=== PATIENT | male | born 1995 | race Caucasian/White ===

== ENCOUNTER 2017-01-03 14:56 | Emergency (ER) | payer OTHER ==
[~2017-01-03] VITALS: Ht 180.3 cm; Wt 83.7 kg
[2017-01-03 15:01] VITALS: Ht 180.3 cm; Wt 83.7 kg
[2017-01-03 15:08] VITALS: O2SAT 99
[2017-01-03] MEDS ORDERED: OPTIRAY 320 IV PRN (15:15)
[2017-01-03 15:32] LABS: BASO % 0.1 %; BASO ABS # 0.01 K/uL (0-0.2); COMPLETE YES; EOS % 0.1 %; HEMATOCRIT 44.8 % (42-52); IG% 0.1 %; LYMPH % 22.3 %; LYMPH ABS # 1.73 K/uL (1.2-3.4); MEAN CELL VOLUME 85.3 fL (80-100); MEAN CORPUSCULAR HEMOGLOBIN 29.3 pg (25-34); MEAN CORPUSCULAR HGB CONC 34.4 g/dl (32-36); MEAN PLATELET VOLUME 10.1 fL (7.4-10.4); MONO % 10.6 %; NEUT % 66.8 %; PLATELET COUNT 163 K/uL (130-400); RED BLOOD COUNT 5.25 M/uL (4.7-6.1); WHITE BLOOD COUNT 7.77 K/uL (4.8-10.8)
[2017-01-03 15:41] LABS: PARTIAL THROMBOPLASTIN RATIO 1.1; PROTHROMBIN TIME (PATIENT) 10.2 SECONDS (9.0-12.0)
[2017-01-03 15:54] LABS: ALT/SGPT 23 U/L (12-78); BLOOD UREA NITROGEN 12 mg/dl (7-18); BUN/CREATININE RATIO 12.4 (10-20); CALCIUM 9.7 mg/dl (8.5-10.1); CARBON DIOXIDE 28 mmol/L (21-32); CHLORIDE 103 mmol/L (98-107); GLUCOSE 88 mg/dl (70-99); POTASSIUM 3.9 mmol/L (3.5-5.1); SODIUM 139 mmol/L (136-145)
[2017-01-03 15:59] LABS: ALKALINE PHOSPHATASE 63 U/L (45-117); AST/SGOT 26 U/L (15-37)
--- NOTE | 2017-01-03 16:23 | DIAGNOSTIC IMAGING REPORT ---
(CHEST FOR PE) ANGIO WITH CLINICAL HISTORY: 21 years-old Male presenting with chest pain, elevated d-dimer greater than 2200. TECHNIQUE: Multidetector CT angiography of the chest was performed after administration of intravenous contrast. 3-D volumetric and maximum intensity projection (MIP) images were subsequently reconstructed for review. IV contrast: 93 mL of Optiray 320. A dose lowering technique was used consistent with the principles of ALARA (as low as reasonably achievable). COMPARISON: None. CT DOSE (mGy.cm): The estimated cumulative dose is 311.31 mGy.cm. FINDINGS: Chin Strap Cutter topogram: Unremarkable. Pulmonary vasculature: The study is suboptimal for assessment of the pulmonary vascular tree given the presence of respiratory artifact at the lung bases. Questionable defects in the subsegmental pulmonary arteries of the bilateral lower lobes. No central pulmonary embolus. Main pulmonary artery not enlarged. No flattening of the interventricular septum. No intracardiac filling defect. Remaining chest: On soft tissue windows, normal thyroid and thoracic inlet. Small subcentimeter hilar lymph nodes suggested, left greater than right, likely reactive. Normal aorta. Normal heart size. Small left pleural effusion. No pericardial effusion. Upper abdomen normal. On lung windows, minimal groundglass opacity in the lingula as well as dependently in the left lower lobe. This is notably asymmetric to the right. Airways patent. On bone windows, normal osseous structures. IMPRESSION: 1. Equivocal subsegmental pulmonary artery filling defects. This may be artifactual related to respiratory motion at the lung bases. If there is continuing clinical concern for pulmonary embolus, lower extremity Doppler ultrasound to be obtained. 2. Limited groundglass opacity in the lingula and left lower lobe. An infectious etiology cannot be excluded. Associated small left pleural effusion. Electronically signed by: Froylan Jacques M.D. 01/03/2017 4:22 PM Dictated Date/Time: 01/03/2017 4:12 PM
--- NOTE | 2017-01-03 18:52 | DIAGNOSTIC IMAGING REPORT ---
ULTRASOUND VENOUS DOPPLER LWR EXT BILA CLINICAL HISTORY: Possible subsemental PEs, Elevated d-dimer COMPARISON STUDY: No previous studies for comparison. FINDINGS: Real-time and color flow Doppler imaging were performed. Flow was seen within the femoral, popliteal and calf veins with no intraluminal thrombus demonstrated. The saphenous vein is patent. IMPRESSION: No evidence of lower extremity DVT. Electronically signed by: Sahil Edge M.D. 01/03/2017 6:51 PM Dictated Date/Time: 01/03/2017 6:50 PM
[2017-01-03 19:04] VITALS: TEMP 37.5
[2017-01-03] MEDS ORDERED: OXYCODONE HCL IR 5 MG TAB (IMMEDIATE RELEASE) PO STA (20:39)
[2017-01-03] MEDS ORDERED: ONDANSETRON INJ 2 MG/ML 2 ML VIAL IV STA (21:23)
[2017-01-03] MEDS: MoRPHine SULFATE 4 MG/ML 1 ML CARP\\VIAL IV STA ×2 (21:23→21:33)
[2017-01-03] MEDS ORDERED: OXYCODONE IR HOME PACK PO ONE (21:30)
[2017-01-03 21:58] VITALS: BP 123/78; PULSE 82; O2SAT 96
--- NOTE | 2017-01-03 22:05 | EMERGENCY ROOM VISIT NOTE ---
History First contact with patient: 15:03 Chief Complaint: CARDIAC ASSESSMENT Stated Complaint: CHEST PAIN Nursing Triage Summary: patient referred from [facility], elevated ddmr 2200, patient c/o chest pain since last evening 1999, described as tightness, worsened with inspiration and laying down. History of Present Illness The patient is a 21 year old male who presents to the Emergency Room with complaints of chest pain for the past 19 hours. The patient reports that at approximately 10 PM last evening, the patient developed left-sided chest pain that he described as a tightness, sharp sensation and worsened with inspiration and laying on his back. The patient reports that he coughed up a small blood clot this morning around 9:30 AM. He went to [facility] where a chest x-ray was performed and was normal. His d-dimer was 2200. He was sent here for further evaluation. The patient denies any pain radiating into the neck or abdomen. He denies any significant shortness of breath. The patient denies any personal or family history of cardiopulmonary disease or blood clots. He denies any recent trauma to the chest. He denies any recent upper respiratory infections, cough, sore throat or sinus congestion. Patient reports only occasional cigar use. The patient rates his discomfort a 3 out of 10. Review of Systems HEENT: Denies dizziness, visual problems, hearing loss, tinnitus. Denies difficulty swallowing or oral lesions. PULMONARY: Denies cough, significant shortness of breath, sputum production or hemoptysis. CARDIOVASCULAR: Denies palpitations, dyspnea on exertion, orthopnea or peripheral edema. Otherwise see history of present illness. GASTROINTESTINAL: Denies diarrhea, constipation, nausea, vomiting, or abdominal pain. GENITOURINARY: Denies dysuria, frequency, urgency or nocturia. NEUROLOGIC: Denies history of epilepsy, CVA, TIA or chronic headaches. MUSCULOSKELETAL: Denies history of joint tenderness/swelling. SKIN: Denies rashes or lesions. PSYCHIATRIC: Denies history of depression or mental illness. ENDOCRINE: Denies history of diabetes or thyroid disorders. Past Medical/Surgical History Medical Problems: (1) No significant past medical history Surgical Problems: (1) No history of previous surgery Family History Unremarkable Social History Smoking Status: Never Smoker Alcohol Use: occasionally Marital Status: single Occupation Status: [employer] Current/Historical Medications No Active Prescriptions or Reported Meds Physical Exam Vital Signs Date Time Temp Pulse Resp B/P (MAP) Pulse Ox O2 Delivery O2 Flow Rate FiO2 01/03/17 21:58 82 18 123/78 96 01/03/17 21:12 102 18 115/73 95 Room Air 01/03/17 20:36 88 18 124/67 98 Room Air 01/03/17 20:20 89 20 127/64 95 Room Air 01/03/17 19:15 89 01/03/17 19:04 37.5 97 21 132/74 98 Room Air 01/03/17 17:36 86 23 134/81 96 Room Air 01/03/17 16:03 84 21 140/78 97 Room Air 01/03/17 15:15 84 01/03/17 15:08 99 Room Air 01/03/17 15:07 99 Room Air 01/03/17 15:01 36.7 73 20 137/79 97 Room Air 01/03/17 14:59 100 Room Air Physical Exam CONSTITUTIONAL: Healthy and well nourished. Alert and oriented X 3 with positive affect. She does not appear in any acute distress. HEENT: Normocephalic, atraumatic. Pupils equal, round and reactive. Ears and nares are clear. No tenderness to palpation or percussion of the frontal or maxillary sinuses. No scleral icterus or conjunctival injection/pallor. OROPHARYNX: No tonsillar hypertrophy or posterior pharyngeal erythema. NECK: Full active range of motion without discomfort. No JVD or carotid bruits. LYMPHATICS: No cervical chain adenopathy. RESPIRATORY: Clear to auscultation bilaterally with no wheezing, crackles, rhonchi or stridor. CARDIOVASCULAR: Regular rate and rhythm with no murmurs, rubs or gallops. GASTROINTESTINAL: Bowel sounds present in all quadrants. Soft and nontender to palpation. No hepatosplenomegaly. Negative CVA tenderness. MUSCULOSKELETAL: Full range of motion of all joints without discomfort. Vision has no tenderness to palpation through the costochondral joints, anterior chest wall, posterior ribs or thoracolumbar spine. Patient has no worsening discomfort with range of motion of the shoulders. Distal pulses are intact. INTEGUMENTARY: No rash or other significant dermatologic conditions noted. HEMATOLOGIC: No ecchymosis or petechiae noted. NEUROLOGIC: No focal neurologic deficits noted. Medical Decision & Procedures ER Provider Diagnostic Interpretation: My interpretation of an ECG shows a normal sinus rhythm of [address] elevation or other conduction abnormalities. CT angiography of the chest shows a following: (CHEST FOR PE) ANGIO WITH CLINICAL HISTORY: 21 years-old Male presenting with chest pain, elevated d-dimer greater than 2200. TECHNIQUE: Multidetector CT angiography of the chest was performed after administration of intravenous contrast. 3-D volumetric and maximum intensity projection (MIP) images were subsequently reconstructed for review. IV contrast: 93 mL of Optiray 320. A dose lowering technique was used consistent with the principles of ALARA (as low as reasonably achievable). COMPARISON: None. CT DOSE (mGy.cm): The estimated cumulative dose is 311.31 mGy.cm. FINDINGS: Transportation Security Screener topogram: Unremarkable. Pulmonary vasculature: The study is suboptimal for assessment of the pulmonary vascular tree given the presence of respiratory artifact at the lung bases. Questionable defects in the subsegmental pulmonary arteries of the bilateral lower lobes. No central pulmonary embolus. Main pulmonary artery not enlarged. No flattening of the interventricular septum. No intracardiac filling defect. Remaining chest: On soft tissue windows, normal thyroid and thoracic inlet. Small subcentimeter hilar lymph nodes suggested, left greater than right, likely reactive. Normal aorta. Normal heart size. Small left pleural effusion. No pericardial effusion. Upper abdomen normal. On lung windows, minimal groundglass opacity in the lingula as well as dependently in the left lower lobe. This is notably asymmetric to the right. Airways patent. On bone windows, normal osseous structures. IMPRESSION: 1. Equivocal subsegmental pulmonary artery filling defects. This may be artifactual related to respiratory motion at the lung bases. If there is continuing clinical concern for pulmonary embolus, lower extremity Doppler ultrasound to be obtained. 2. Limited groundglass opacity in the lingula and left lower lobe. An infectious etiology cannot be excluded. Associated small left pleural effusion. Venous ultrasound of bilateral lower extremities does not show any evidence for deep vein thromboses. Radiologist report is as follows: ULTRASOUND VENOUS DOPPLER LWR EXT BILA CLINICAL HISTORY: Possible subsemental PEs, Elevated d-dimer COMPARISON STUDY: No previous studies for comparison. FINDINGS: Real-time and color flow Doppler imaging were performed. Flow was seen within the femoral, popliteal and calf veins with no intraluminal thrombus demonstrated. The saphenous vein is patent. IMPRESSION: No evidence of lower extremity DVT. Laboratory Results 01/03/17 15:23 Red Blood Count 5.25, Mean Corpuscular Volume 85.3, Mean Corpuscular Hemoglobin 29.3, Mean Corpuscular Hemoglobin Concent 34.4, Mean Platelet Volume 10.1, Neutrophils (%) (Auto) 66.8, Lymphocytes (%) (Auto) 22.3, Monocytes (%) (Auto) 10.6, Eosinophils (%) (Auto) 0.1, Basophils (%) (Auto) 0.1, Neutrophils # (Auto ) 5.19, Lymphocytes # (Auto) 1.73, Monocytes # (Auto) 0.82, Eosinophils # (Auto ) 0.01, Basophils # (Auto) 0.01 01/03/17 15:23 Test 01/03/17 15:04 01/03/17 15:23 Creatine Kinase MB Ratio (0-3.0) White Blood Count 7.77 K/uL (4.8-10.8) Red Blood Count 5.25 M/uL (4.7-6.1) Hemoglobin 15.4 g/dL (14.0-18.0) Hematocrit 44.8 % (42-52) Mean Corpuscular Volume 85.3 fL (80-100) Mean Corpuscular Hemoglobin 29.3 pg (25-34) Mean Corpuscular Hemoglobin Concent 34.4 g/dl (32-36) Platelet Count 163 K/uL (130-400) Mean Platelet Volume 10.1 fL (7.4-10.4) Neutrophils (%) (Auto) 66.8 % Lymphocytes (%) (Auto) 22.3 % Monocytes (%) (Auto) 10.6 % Eosinophils (%) (Auto) 0.1 % Basophils (%) (Auto) 0.1 % Neutrophils # (Auto) 5.19 K/uL (1.4-6.5) Lymphocytes # (Auto) 1.73 K/uL (1.2-3.4) Monocytes # (Auto) 0.82 K/uL (0.11-0.59) Eosinophils # (Auto) 0.01 K/uL (0-0.5) Basophils # (Auto) 0.01 K/uL (0-0.2) RDW Standard Deviation 37.9 fL (36.4-46.3) RDW Coefficient of Variation 12.2 % (11.5-14.5) Immature Granulocyte % (Auto) 0.1 % Immature Granulocyte # (Auto) 0.01 K/uL (0.00-0.02) Prothrombin Time 10.2 SECONDS (9.0-12.0) Prothromb Time International Ratio 1.0 (0.9-1.1) Activated Partial Thromboplast Time 28.3 SECONDS (21.0-31.0) Partial Thromboplastin Ratio 1.1 Anion Gap 8.0 mmol/L (3-11) Est Creatinine Clear Calc Drug Dose 123.3 ml/min Estimated GFR () 123.3 Estimated GFR (Non- 106.4 BUN/Creatinine Ratio 12.4 (10-20) Calcium Level 9.7 mg/dl (8.5-10.1) Total Bilirubin 1.3 mg/dl (0.2-1) Direct Bilirubin 0.2 mg/dl (0-0.2) Aspartate Amino Transf (AST/SGOT) 26 U/L (15-37) Alanine Aminotransferase (ALT/SGPT) 23 U/L (12-78) Alkaline Phosphatase 63 U/L (45-117) Creatine Kinase MB 1.6 ng/ml (0.5-3.6) Troponin I < 0.015 ng/ml (0-0.045) Total Protein 8.2 gm/dl (6.4-8.2) Albumin 4.4 gm/dl (3.4-5.0) The above labs were reviewed. CBC, partial renal profile, LFTs, PT, PTT and troponin are normal. Medications Administered Medications (Trade) Dose Ordered Sig/Aguilar Route Start Time Stop Time Status Last Admin Dose Admin Oxycodone HCl (Roxicodone Immediate Rel Tab) 5 mg NOW STAT PO 01/03/17 20:39 01/03/17 20:40 DC 01/03/17 20:52 5 MG Morphine Sulfate (MoRPHine SULFATE INJ) 4 mg NOW STAT IV 01/03/17 21:23 01/03/17 21:25 DC 01/03/17 21:23 2 MG Ondansetron HCl (Zofran Inj) 4 mg NOW STAT IV 01/03/17 21:23 01/03/17 21:25 DC 01/03/17 21:33 4 MG ED Course Patient history and physical exam were performed. Nurse's notes were reviewed. Vital signs were reviewed and normal. O2 saturation is 97% on room air. Pulse rate is also normal. The patient is afebrile. The patient does not appear in any acute distress. 18-gauge IV access was established, and additional labs were drawn. Review of labs did not show any acute findings. Troponin was normal. ECG was performed and was also normal. CT angiography of the chest showed equivocal subsegmental pulmonary artery filling defects, with radiologist recommendation for lower extremity Doppler studies to rule out DVTs as warranted. Limited groundglass opacities in the lingula and left lower lobe were also noted with an associated small left pleural effusion. Infectious etiology could not be ruled out. Findings were further discussed with the patient. Shortly thereafter, the patient's parents arrived from [place] and wanted further evaluation and management performed of the patient's condition. The patient was thoroughly discussed with Dr. Almendarez, ED attending physician who suggested discussing the case further with the hospitalist service. After discussion with Dr. Lyle, he recommended discussing the case further with the on-call [facility] sagger preparer, Dr. Rausch. She reviewed laboratory and imaging studies, and felt that bronchoscopy was warranted. She suggested outpatient management versus observation status and could perform a bronchoscopy in the morning; however, the patient does not meet other admission criteria to warrant observation status. He is clinically stable, not hypoxic or hypotensive. Dr. Lyle also spoke with Dr. Rausch, and it was agreed that outpatient management would be best. He also does not feel that starting anticoagulation therapy is warranted given that the patient had hemoptysis. At this point, I will back in and spent approximately 30 minutes discussing treatment options with both the patient and parents. The patient reports that he is developing more severe left-sided chest pain. He was administered OxyIR 5 mg. He initially refused any parenteral analgesics. I explained that I would have our Hydrogenation Still Operator also call Dr. Rausch's office in the morning for prompt reevaluation. I also encouraged the parents to call the office as well to schedule an appointment time. Both the patient and parents agreed to try outpatient management. The patient was offered IV morphine for the pain, but reports that he has had IV morphine in the past with a left forearm fracture, and does not like the side effects any: However, he also agreed that he needed something stronger for the pain. Morphine 4 mg and Zofran 4 mg IVP was ordered , but the nurse told me that she deluded the morphine, and the patient only received approximately 1 mL of the morphine before the patient requested that she stop. The patient and family were provided contact information for Dr. Rausch's office, and our Clinic Mgr will call Dr. Rausch's office in the morning. The patient was instructed to return for any uncontrollable pain, fever, persistent hemoptysis or other concerning symptoms. The patient rated his discomfort a 5 out of 10 at the time of discharge. Medical Decision The patient presents to the emergency department with complaint of left-sided chest pain, shortness of breath and pleuritic type of symptoms. The patient did have a positive d-dimer performed at [facility] , prompting referral to our facility. His chest CT angiography is equivocal regarding subsegmental pulmonary artery filling defects. The patient does not have any evidence for lower extremity DVTs on ultrasound, therefore I feel that the patient's risk for pulmonary emboli are small. I am more concerned about an infectious etiology, although the patient has no leukocytosis, fever or productive cough. Nevertheless, the patient is clinically stable at this point , and I do feel that outpatient bronchoscopy is warranted, with instructions to return for any worsening symptoms. Medication Reconcilliation Current Medication List: was personally reviewed by me Blood Pressure Screening Patient's blood pressure: Normal blood pressure Impression Primary Impression: Left sided chest pain Additional Impressions: Pleural effusion, left Shortness of breath Cough with hemoptysis Departure Information Prescriptions No Active Prescriptions or Reported Meds Referrals No Doctor, Assigned (PCP) Patient Instructions My [facility] Problem Qualifiers
== END 2017-01-03 21:46 | disposition home or self-care (01) ==
LOC: C.EDB 14:58 → C.EDA 21:46
DX: R07.9 Chest pain, unspecified (principal); J90 Pleural effusion, not elsewhere classified; R06.02 Shortness of breath; R91.8 Other nonspecific abnormal finding of lung field

== ENCOUNTER → 2017-04-04 | Outpatient (CLI) | payer OTHER | END | disposition home or self-care (01) | LOC: C.LAB1850 13:56 | PROVIDERS: ATTEND Internal Medicine Critical Care Medicine | DX: R79.89 Other specified abnormal findings of blood chemistry (principal); I26.99 Other pulmonary embolism without acute cor pulmonale ==

== ENCOUNTER → 2017-04-13 | Outpatient (CLI) | payer OTHER ==
--- NOTE | 2017-04-13 08:39 | DIAGNOSTIC IMAGING REPORT ---
NUCLEAR PULMONARY VENTILATION/PERFUSION SCAN CLINICAL HISTORY: Pulmonary embolism. COMPARISON STUDY: Chest CT dated 01/03/2017. Chest radiograph dated 04/13/2017. TECHNIQUE: Initially, ventilation images of both lungs are obtained following the inhalation of 33 mCi of aerosolized technetium 99m DTPA. Subsequently, perfusion images of both lungs were obtained following the IV administration of 5.3 mCi of technetium 99m MAA. Ventilation and perfusion images were acquired in the anterior, posterior, and oblique projections. FINDINGS: A chest x-ray performed 04/13/2017 shows no abnormality. The lungs are clear. The heart is normal in size. The ventilation of both lungs is normal and symmetric. Inhaled tracer is noted in the stomach. No perfusion defects are identified on the perfusion imaging. IMPRESSION: Findings are considered low probability for pulmonary embolus. Electronically signed by: Aakash Winston M.D. 04/13/2017 8:38 AM Dictated Date/Time: 04/13/2017 8:36 AM
--- NOTE | 2017-04-13 08:39 | DIAGNOSTIC IMAGING REPORT ---
CHEST 2 VIEWS ROUTINE CLINICAL HISTORY: PULMONARY EMBOLISM COMPARISON STUDY: Chest CT dated 01/03/2017 FINDINGS: The cardiac and mediastinal contours are normal. There is no evidence of focal pulmonary consolidation. There is no evidence of failure. No pleural effusions are visualized.[ There is a minor thoracolumbar spinal curvature IMPRESSION: No active disease in the chest. Electronically signed by: Sahil Edge M.D. 04/13/2017 8:37 AM Dictated Date/Time: 04/13/2017 8:37 AM
== END | disposition home or self-care (01) ==
LOC: C.NUCL 07:37
PROVIDERS: ATTEND Internal Medicine Critical Care Medicine
DX: I26.99 Other pulmonary embolism without acute cor pulmonale (principal)